=== PATIENT | male | born 1970 | race Caucasian/White ===

== ENCOUNTER 2025-01-01 10:28 | Outpatient (REF) | payer OTHER, SELFPAY ==
--- NOTE | 2025-01-01 10:31 | EMG_ITS ---
Chief complaint:? R20.0 paresthesia of skin - left upper extremity Reason for referral: Evaluate for Carpal Tunnel Syndrome Referred by:? TEJ Rodriguez Procedure done:? Left upper extremity NCS/EMG [place] [address] Left median and ulnar motor studies were performed. Left median and ulnar mixed sensory, median and lateral antecubital brachial sensory, and left radial sensory study was performed. Paraspinal muscles were tested with a needle. Findings: Left ulnar motor conduction velocity was moderately slow across elbow with slight reduction of amplitude. Otherwise no significant abnormality noted. Impression: Mild left ulnar neuropathy across cubital tunnel MTDD
--- OUTSIDE RECORDS SUMMARY | 2025-01-01 12:17 | XMS_ITS | Encounter Summary ---
Author Organization [facility] Address [address] [place] [address] Care Team Providers [employer] Name Role Phone Ruy Olsen MD Primary Care Provider Reason for Referral * Consultation (Routine) - Closed Specialty Diagnoses / Procedures Referred By Contact Referred To Contact Physical Medicine and Rehabilitation Diagnoses Chronic low back pain, unspecified back pain laterality, unspecified whether sciatica present Ruy Olsen MD [address] [place], [place] Phone: tel: fax: [facility] [place] [address] Phone: tel: fax: Referral ID Status Reason Start Date Expiration Date V isits Requested Visits Authorized [id number] Closed Specialty Services Required 12/25/2024 12/25/2025 10 10 Encounter Details Date Type Department Care Team (Late st Contact Info) Description 12/25/2024 Results Follow-Up Adult Medicine [id number] [place] [address] Ruy Olsen MD [address] [place], [place] Social History Tobacco Use Types Packs/Day Years Used Date Smoking Tobacco: Never Alcohol Use Standard Drinks/Week Comments Not Currently 0 (1 standard drink = 0.6 oz pur e alcohol) Housing Instability Answer Date Recorde d Are you worried that in the next 2 months you may not have stable housing? No 09/03/2024 Food Access & Nutrition Answer Date Rec orded Do you have access to a vari ety of food including fruits and vegetables? No 09/03/2024 Access to Healthcare Answer Date Record ed Within the last 3 months, ho w many times did you visit the emergency department for your medical care? 0 09/03/2024 Health Literacy Answer Date Recorded How often do you need to hav e someone help you when you read instructions, pamphlets, or other written material from your doctor or pharmacy? Never 09/03/2024 Caregiver: How often do you need to have someone help you when you read instructions, pamphlets, or other written material from your doctor or pharmacy? Not on file 09/03/2024 Financial Risk Answer Date Recorded How hard is it for you to pa y for the very basics like food, housing, medical care, and air conditioning / heating? Not very hard 09/03/2024 Transportation Answer Date Recorded Has the lack of transportati on kept you from meetings, work, or from getting things needed for daily living? No Has the lack of transportati on kept you from medical appointments or from getting medications? No 09/03/2024 Social Isolation Answer Date Recorded How often do you feel lonely or isolated from those around you? Sometimes 09/03/2024 Food Risk Answer Date Recorded Within the past 12 months we worried whether our food would run out before we got money to buy more. Never true 09/03/2024 Within the past 12 months th e food we bought just didn't last and we didn't have money to get more. Never true 09/03/2024 Dependent Care Answer Date Recorded Do you need help finding or paying for care for your loved ones. For example, child welfare consultant or elderly care for an older adult? No 09/03/2024 Education Answer Date Recorded Do you think completing more education or training, like finishing a GED, going to college, or learning a trade, would be helpful for you? No 09/03/2024 Employment and Income Answer Date Recor ded During the last four weeks, have you been actively looking for work? No 09/03/2024 Living Situation Answer Date Recorded What is your living situation? Unrecognized valu e 09/03/2024 Sex and Gender Information Value Date Recorded Sex Assigned at Male 09/03/2024 9:55 AM EDT Legal Sex Male 4:18 PM EDT Gender Identity Male 09/03/2024 9:55 AM EDT Sexual Orientation Straight 09/03/2024 9: 55 AM EDT documented as of this encounter Plan of Treatment Upcoming Encounters Date Type Department Care Team (Late st Contact Info) Description 01/17/2025 11:00 AM EST Ancillary Procedure [facility] [address] [place] [id number] 02/18/2025 3:00 PM EST Appointment [facility] [address] [place] [id number] Dustin Jones DO [address] [facility] [address] [place] [address] 06/19/2025 8:30 AM EDT Office Visit Adult Medicine [address] [phone] Ruy Olsen MD [address] [place] [address] 12/27/2025 3:00 PM EDT Office Visit [address] [phone] Ruy Olsen MD [address] [place], [place] Scheduled Referrals Name Type Priority Associated Diagnoses Order Schedule Ambulatory referral to Physical Medicine Rehab Outpatient Referral Routine Chronic low back pain, unspecified back pain laterality, unspecified whether sciatica present 1 Occurrences starting 12/25/2024 until 12/25/2025 documented as of this encounter Goals Goal Patient Goal Type Associated Problems Recent Progress Patient-Stated? Author <enter goal here> General Improving(09/2024 9:16 AM EDT) Yes Yanira Stanley, OT Note: OT PATIENT GOAL RESOLVE NUMBNESS AT [employer] LEFT HAND documented as of this encounter Visit Diagnoses Diagnosis Chronic low back pain, unspecified back pain laterality, unspecified whether sciatica present- Primary documented in this encounter Additional Health Concerns Assessment Noted Time PHQ-9 Depression Total Score: 5 09/04/19 25 10:01 AM EDT documented as of this encounter Care Teams [employer] Relationship Specialty Start Date End Date Ruy Olsen MD [address] [place] [address] PCP - General 08/12/23 documented as of this encounter
--- OUTSIDE RECORDS SUMMARY | 2025-01-01 12:17 | XMS_ITS | Clinical Summary ---
Author Organization [address] [place] [address] Address [address] [place] [address] Phone Care Team Providers Care Children'S Librarian Name Role Phone Ruy Olsen MD Primary Care Provider Allergies No known active allergies Medications sertraline (ZOLOFT) 100 mg tablet Take 1 tablet (100 mg total) by mouth 1 (one) time each day. Take 1 Tablet by mouth daily. - Oral Active busPIRone (BUSPAR) 7.5 mg tablet Take 1 tablet (7.5 mg total) by mouth 2 (two) times a day. Active cholecalcifero l (Vitamin D3) 50 mcg (2,000 unit) capsule Take 1 capsule (2,000 Units total) by mouth 1 (one) time each day. 30 each 11 5 026 Active losartan (COZAAR) 25 mg tablet TAKE 1 TABLET BY MOUTH EVERY DAY 90 tablet 1 5 Active atorvastatin (LIPITOR) 40 mg tablet TAKE 1 TABLET BY MOUTH EVERY DAY 90 tablet 1 5 Active diclofenac (VOLTAREN) 50 mg EC tablet Take 1 tablet (50 mg total) by mouth 2 (two) times a day if needed (pain). Do not crush, chew, or split. 28 tablet 1 5 Active tiZANidine (ZANAFLEX) 2 mg tablet Take 1 tablet (2 mg total) by mouth at bedtime as needed for muscle spasms. 30 tablet 5 025 Active atorvastatin (LIPITOR) 40 mg tablet TAKE 1 TABLET BY MOUTH EVERY DAY 90 tablet 5 025 Discontinued predniSONE (DELTASONE) 20 mg tablet Take 60 mg PO daily for 3 days, then take 40 mg PO daily for 3 days, then 20 mg PO daily for 3 days, then stop 18 tablet 5 025 Discontinued gabapentin (NEURONTIN) 100 mg capsule Take 1 capsule (100 mg total) by mouth at bedtime. 90 each 5 025 Discontinued methylPREDNISo lone (MEDROL DOSPAK) 4 mg tablet Take as directed on package. 21 tablet 5 025 tiZANidine (ZANAFLEX) 2 mg tablet Take 1 tablet (2 mg total) by mouth every 6 (six) hours if needed for muscle spasms for up to 10 days. 30 tablet 5 025 Discontinued Active Problems Problem Noted Date Diagnosed Date Pain of lower extremity 12/19/2024 Pain in both feet 12/19/2024 Osteoarthritis of cervical spine 12/19/2024 Osteoarthritis of left hand 12/19/2024 Snoring 12/19/2024 Enlarged tonsils 12/19/2024 Bilateral hearing loss 12/19/2024 Chronic low back pain with bilateral sciatica Acute neck pain 12/19/2024 Weakness of left hand 09/26/2024 Numbness of left hand 09/26/2024 Left hand paresthesia 09/26/2024 Abnormal EKG 09/13/2024 Chest pain 09/13/2024 Prediabetes 09/05/2024 Gastroesophageal reflux disease 09/05/2024 Other fatigue 09/05/2024 Class 3 severe obesity due t o excess calories with serious comorbidity and body mass index (BMI) of 40.0 to 44.9 in adult ([facility] V24, [facility] V28) 09/05/2024 Hyperlipidemia 12/07/2023 Anxiety and depression 12/07/2023 Mild intermittent asthma without complication Peyronie's disease 12/07/2023 Primary hypertension 12/07/2023 Sensorineural hearing loss (SNHL) of both ears 1 Thoracic aortic ectasia ([facility] V24) 12/07/2023 Upper back pain 12/07/2023 Encounters Date Type Department Care Team Description 12/28/2024 Results Follow-Up [address] [phone] Ruy Olsen MD 12/25/2024 Results Follow-Up [address] [phone] Ruy Olsen MD 12/21/2024 1:00 PM EDT - 12/21/2024 11:59 PM EDT Hospital Encounter [address] [phone] Pain in both feet; Pain of lower extremity, unspecified laterality; Chronic low back pain with bilateral sciatica, unspecified back pain laterality Discharge Disposition: Home or Self Care 12/20/2024 Telephone Gastroenterology - [address] [facility] [address] [facility] [address] [place] [address] Santosh Deutsch MD 12/19/2024 2:00 PM EDT Office Visit [address] [phone] Ruy Olsen MD Annual physical exam (Primary Dx); Routine general medical examination at a health care facility; Prediabetes; Anxiety and depression; Hyperlipidemia, unspecified hyperlipidemia type; Primary hypertension; Osteoarthritis of cervical spine, unspecified spinal osteoarthritis complication status; Pain in both feet; Pain of lower extremity, unspecified laterality; Acute neck pain; Paresthesia of left upper extremity; Left hand paresthesia; Osteoarthritis of left hand, unspecified osteoarthritis type; Chronic low back pain with bilateral sciatica, unspecified back pain laterality; Class 3 severe obesity due to excess calories with serious comorbidity and body mass index (BMI) of 40.0 to 44.9 in adult ([facility] V24, [facility] V28); Bilateral hearing loss, unspecified hearing loss type; Enlarged tonsils; Snoring 12/05/2024 8:30 AM EDT Treatment [facility] Occupational Therapy [address] [facility] [address] [place] [address] Yanira Stanley, OT Numbness of left hand (Primary Dx); Weakness of left hand 11/21/2024 8:30 AM EDT Treatment [facility] Occupational Therapy [address] [phone] Yanira Stanley OT Weakness of left hand (Primary Dx); Left hand paresthesia 11/12/2024 Telephone [facility] [address] [facility] [address] [place] [phone] Christelle Weber MD 11/07/2024 4:30 PM EDT Evaluation [facility] Occupational Therapy [address] [phone] Yanira Stanley OT Weakness of left hand; Left upper extremity numbness; Left hand paresthesia 11/07/2024 Plan of Care Documentation [facility] Occupational Therapy [address] [phone] 10/16/2024 Telephone Adult Medicine [address] [phone] [place] 10/09/2024 8:00 AM EDT Consult Orthopedic Surgery - [place] 175 [facility] [address] [place] [address] Rosita Weber PA Left hand paresthesia (Primary Dx) from Last 3 Months Immunizations Immunization Administration Dates Next Due Influenza Quadrivalent, 0.5m l, preservative free (Fluarix; FluLaval; Fluzone) ages 6mo and older (Afluria) 3yo and older 12/13/2018,01/31/2018,01/27/2015 Influenza trivalent, 0.5mL, preservative free (Fluarix; FluLaval; Fluzone) ages 6mo and older (Afluria) 3 years and older 12/26/2023 Influenza trivalent, recombi nant, 0.5mL, preservative free (Flublok) 9yo and older 11/22/2024 Pneumococcal conjugate 20 va lent (Prevnar 20, PCV 20) 2mo and older 12/26/2023 Tdap Tetanus diptheria acell ular pertussis (Boostrix; Adacel) 7yo and older 12/13/2018,11/19/2008 Zoster recombinant (Shingrix ) 19yo and older 05/11/2024 Surgical History Surgery Date Site/Laterality Comments LITHOTRIPSY PROCEDURE: HISTORICAL LITHOTRIPSY Medical History Medical History Date Comments History of kidney stones DX:Hist ory of kidney stones Social History Tobacco Use Types Packs/Day Years Used Date Smoking Tobacco: Never Tobacco Cessation:Counseling Given: Not Answered Alcohol Use Standard Drinks/Week Comments Not Currently [...] care for your loved ones. For example, children's choir director or elderly care for an older adult? [...] Orientation Straight 09/03/2024 9: 55 AM EDT Obstetrics History Last Filed Vital Signs Vital Sign Reading Time Taken Comments Blood Pressure 116/76 12/19/2024 1:41 PM EDT Pulse 93 12/19/2024 1:41 PM EDT Temperature 36.4 C (97.5 F) 12/19/2024 1:41 PM EDT Respiratory Rate 12 12/19/2024 1:41 PM EDT Oxygen Saturation 97% 09/17/2024 2:09 PM EDT Inhaled Oxygen Concentration - - Weight 134 kg (295 lb) 12/19/2024 1:41 PM EDT Height 177.8 cm (5' 10 ) 12/19/2024 1:41 PM EDT Body Mass Index 42.33 12/19/2024 1:41 PM EDT Plan of Treatment Upcoming Encounters Date Type Department Care Team (Late st Contact Info) Description 01/17/2025 11:00 AM EST Ancillary Procedure [facility] - [address] [place] [address] 02/18/2025 3:00 PM EST Appointment [facility] Endoscopy [address] [facility] [place] [address] Dustin Jones, [address] [facility] [address] [place] [address] 06/19/2025 8:30 AM EDT Office Visit [place] Medicine [address] [place] [phone] Ruy Olsen MD [address] [place] 12/27/2025 3:00 PM EDT [address] [place] [phone] Ruy Olsen MD [address] [facility] [place] Health Maintenance Due Date Last Done Comments Diabetes: Blood Sugar Control Test (HGBA1C) 06/20/2025 12/20/2024, 09/05/2024, 11/24/2023, Additional history exists Social Influencers of Health Screening 09/03/2025 09/03/2024 Diabetes: Annual GFR (Glomerular Filtration Rate) 09/05/2025 09/05/2024, 11/24/2023, 11/24/2023 Hypertension/CHF/CAD Annual BMP Blood Test 09/05/2025 09/05/2024, 11/24/2023, 11/24/2023 Colorectal Cancer Screening: Colonoscopy 11/28/2025 Postponed from 1969 (Patient Refused) HIV Screening 11/28/2025 Postponed from 12/06/2023 (Patient Refused) Hepatitis B Vaccines (1 of 3 - 19+ 3-dose series) 11/28/2025 Postponed from 1988 (Patient Refused) RSV Immunization Adult Patients (1 - Risk 50-74 years 1-dose series) 11/28/2025 Postponed from 11/07/2019 (Patient Refused) Zoster Vaccines (2 of 2) 11/28/2025 05/11/2024 Pos tponed from 07/06/2024 (Patient Refused) Cholesterol Screening (Lipid Panel) 09/05/2029 09/05/2024, 11/24/2023, 11/24/2023 DTaP,Tdap,and Td Vaccines (4 - Td or Tdap) 12/31/2029 01/01/2020, 12/13/2018, 11/19/2008 MMR Vaccines Aged Out 01/01/2020 No longer eligi ble based on patient's age to complete this topic Hepatitis C Screening Completed 09/21/2023 Pneumococcal Vaccine: 50+ Years Completed 12/26/2023, 01/01/2020 Depression Screening Completed 09/03/2024, 09/21/19 COVID-19 Vaccine Completed 11/22/2024, , 12/16/2022, Additional history exists Influenza Vaccine Completed 11/22/2024, , 12/16/2022, Additional history exists Diabetes: Annual Urine Albumin-Creatinine Ratio (uACR) Discontinued Diabetes: Annual Foot Exam Discontinued Diabetes: Annual Retina Eye Exam Discontinued HIB Vaccines Aged Out No longer eligi ble based on patient's age to complete this topic HPV Vaccines Aged Out No longer eligi ble based on patient's age to complete this topic Hepatitis A Vaccines Aged Out No long er eligible based on patient's age to complete this topic IPV Vaccines Aged Out No longer eligi ble based on patient's age to complete this topic Meningococcal ACWY Vaccine Aged Out N o longer eligible based on patient's age to complete this topic Meningococcal B Vaccine Aged Out No l onger eligible based on patient's age to complete this topic RSV Immunization Patients Under 20 months Aged Out No longer eligible based on patient's age to complete this topic Varicella Vaccines Aged Out No longer eligible based on patient's age to complete this topic Goals Goal Patient Goal Type Associated Problems Recent Progress Patient-Stated? Author <enter goal here> General Improving(09/2024 9:16 AM EDT) Yes Yanira Stanley, OT Note: OT PATIENT GOAL RESOLVE NUMBNESS AT DOMINANT LEFT HAND Autogenerated Goal Care Plan Autogenerated Problem No Yadira Jimenez Procedures Procedure Name Priority Date/Time Associated Diagnosis Comments XR LUMBAR SPINE 4+ VIEWS Routine 12/21/2024 1:09 PM EDT Pain in both feet Pain of lower extremity, unspecified laterality Chronic low back pain with bilateral sciatica, unspecified back pain laterality HEMOGLOBIN A1C Routine 12/20/2024 7:47 AM EDT Prediabetes PROSTATE SPECIFIC ANTIGEN SCREEN Routine 12/20/2024 7:47 AM EDT Annual physical exam COMPREHENSIVE METABOLIC PANEL Routine 09/05/2024 9:17 AM EDT Hyperlipidemia, unspecified hyperlipidemia type LIPID PANEL WITH REFLEX TO DIRECT LDL Routine 09/05/2024 9:17 AM EDT Hyperlipidemia, unspecified hyperlipidemia type HM DEPRESSION SCREENING Routine 09/21/2023 HEPATITIS C SCREENING Routine 09/21/2023 from Last 3 Months or Most Recently Relevant to Health Maintenance Results * XR Lumbar Spine 4+ Views (12/21/2024 1:09 PM EDT) Anatomical Region Laterality Modality Spine, L-spine Radiographic Christine ging 12/21/2024 7:27 PM EDT Impressions 12/21/2024 7:28 PM EDT Mild degenerative changes of the lower lumbar spine. -------- FINAL REPORT -------- Dictated By: Andrez Pittman Dictated Date: 12/21/2024 19:27 ET Assigned Physician: Andrez Pittman Reviewed and Electronically Signed By: Andrez Pittman Signed Date: 12/21/2024 19:28 ET Workstation ID: [id number] Transcribed By: Self Edit Transcribed Date: 12/21/2024 19:27 ET Narrative 12/21/2024 7:28 PM EDT HISTORY: chronic low back pain with sciatica TECHNIQUE: 4 views of the lumbar spine COMPARISON: None FINDINGS: Vertebral body height is preserved. Decreased disc height at L4-L5 and L5-S1 with endplate sclerosis. Small anterior osteophytes are present at the lower lumbar spine. No significant neuroforaminal stenosis. The sacroiliac joints are patent. Procedure Note Andrez Pittman MD - 12/21/2024 HISTORY: chronic low back pain with sciatica TECHNIQUE: 4 views of the lumbar spine COMPARISON: None FINDINGS: Vertebral body height is preserved. Decreased disc height at L4-L5 andL5-S1 with endplate sclerosis. Small anterior osteophytes are present atthe lower lumbar spine. No significant neuroforaminal stenosis. Thesacroiliac joints are patent. IMPRESSION: Mild degenerative changes of the lower lumbar spine. -------- FINAL REPORT -------- Dictated By: Andrez Pittman Dictated Date: 12/21/2024 19:27 ET Assigned Physician: Andrez Pittman Reviewed and Electronically Signed By: Andrez Pittman Signed Date: 12/21/2024 19:28 ET Workstation ID: [id number] Transcribed By: Self Edit Transcribed Date: 12/21/2024 19:27 ET Ruy Olsen MD IMG XR PROCEDURES Final Res ult * Prostate specific antigen screen (12/20/2024 7:47 AM EDT) Pathologist [facility] PSA 0.69 0.00 - 4.00 ng/mL LAB CHEMISTRY METHOD 12/20/2024 11:01 AM EDT [facility] Blood Venous blood specimen / Unknown Venipuncture / Unknown 12/20/2024 7:47 AM EDT 12/20/2024 7:47 AM EDT Narrative [facility] - 12/20/2024 11:01 AM EDT The Siemens Advia Centaur Chemiluminescent Immunoassay is used. Results obtained with different assay methods or kits cannot be used interchangeably. Results cannot be interpreted as absolute evidence of the presence or absence of malignant disease. Ruy Olsen MD LAB BLOOD ORDERABLES Final Result [facility] [address] [place] [address], [place] [phone] * Hemoglobin A1c (12/20/2024 7:47 AM EDT) Pathologist [facility] Hemoglobin A1C 6.3 <6.5 % LAB CHEMISTRY METHOD 12/20/2024 11:49 AM EDT [facility] Mean Bld Glu Estim. 134 mg/dL LAB CHEMISTRY METHOD 12/20/2024 11:49 AM [facility] Blood Venous blood specimen / Unknown Venipuncture / Unknown 12/20/2024 7:47 AM EDT 12/20/2024 7:47 AM EDT us Ruy Olsen MD LAB BLOOD ORDERABLES Final Result [facility] [address] [place] [address], [place] [phone] * Lipid panel with reflex to direct LDL (09/05/2024 9:17 AM EDT) [facility] Cholesterol 161 0 - 200 mg/dL LAB CHEMISTRY METHOD 09/05/2024 2:02 PM [facility] Triglycerides 100 0 - 150 mg/dL LAB CHEMISTRY METHOD 09/05/2024 2:02 PM [facility] HDL 51 >=40 mg/dL LAB CHEMISTRY METHOD 09/05/2024 2:02 PM [facility] LDL Calculated 90 0 - 100 mg/dL LAB CHEMISTRY METHOD 09/05/2024 2:02 PM [facility] VLDL Cholesterol Robert 20 mg/dL LAB CHEMISTRY METHOD 09/05/2024 2:02 PM [facility] Non HDL Chol. (LDL+VLDL) 110 <145 mg/dL LAB CHEMISTRY METHOD 09/05/2024 2:02 PM [facility] Chol/HDL Ratio 3.2 0.0 - 4.4 LAB CHEMISTRY METHOD 09/05/2024 2:02 PM [facility] Blood Venous blood specimen / Unknown Venipuncture / Unknown 09/05/2024 9:17 AM EDT 09/05/2024 9:17 AM EDT us Ruy Olsen MD LAB BLOOD ORDERABLES Final Result [facility] [address] [place] [address], [place] [phone] * (ABNORMAL) Comprehensive metabolic panel (09/05/2024 9:17 AM EDT) Pathologist [facility] Sodium 139 133 - 145 mmol/L LAB CHEMISTRY METHOD 09/05/2024 2:02 PM [facility] Potassium 4.5 3.5 - 5.5 mmol/L LAB CHEMISTRY METHOD 09/05/2024 2:02 PM [facility] Chloride 104 96 - 110 mmol/L LAB CHEMISTRY METHOD 09/05/2024 2:02 PM [facility] CO2 28 21 - 32 mmol/L LAB CHEMISTRY METHOD 09/05/2024 2:02 PM [facility] Anion Gap 7 3 - 11 LAB CHEMISTRY METHOD 09/05/2024 2:02 PM [facility] Glucose 111(H) 70 - 100 mg/dL LAB CHEMISTRY METHOD 09/05/2024 2:02 PM [facility] BUN 14 5 - 25 mg/dL LAB CHEMISTRY METHOD 09/05/2024 2:02 PM [facility] Creatinine 0.84 0.70 - 1.30 mg/dL LAB CHEMISTRY METHOD 09/05/2024 2:02 PM [facility] eGFR 104 >=60 mL/min/1. 73m2 LAB CHEMISTRY METHOD 09/05/2024 2:02 PM [facility] Comment:Calculation based on the Chronic Kidney Disease Epidemiology Collaboration (CKD-EPI) equation refit without adjustment for race. BUN/Creatinine Ratio 16.7 LAB CHEMISTRY METHOD 09/05/2024 2:02 PM [facility] Calcium 9.5 8.5 - 10.5 mg/dL LAB CHEMISTRY METHOD 09/05/2024 2:02 PM [facility] AST (SGOT) 8(L) 10 - 42 unit/L LAB CHEMISTRY METHOD 09/05/2024 2:02 PM [facility] ALT (SGPT) 29 10 - 60 unit/L LAB CHEMISTRY METHOD 09/05/2024 2:02 PM [facility] Alkaline Phosphatase 65 42 - 121 unit/L LAB CHEMISTRY METHOD 09/05/2024 2:02 PM [facility] Total Protein 7.6 6.0 - 8.0 g/dL LAB CHEMISTRY METHOD 09/05/2024 2:02 PM [facility] Albumin 3.9 3.2 - 5.0 g/dL LAB CHEMISTRY METHOD 09/05/2024 2:02 PM [facility] Total Bilirubin 0.6 0.0 - 1.4 mg/dL LAB CHEMISTRY METHOD 09/05/2024 2:02 PM [facility] Blood Venous blood specimen / Unknown Venipuncture / Unknown 09/05/2024 9:17 AM EDT 09/05/2024 9:17 AM EDT Ruy Olsen MD LAB BLOOD ORDERABLES Final Result [facility] [address] [place] [address], * Depression Screening (09/21/2023) Depression Screening abstracted Historical Provider HEALTH MAINTENANCE Final Result * Hepatitis C Screening (09/21/2023) Hepatitis C Screening abstracted Historical Provider HEALTH MAINTENANCE Final Result from Last 3 Months or Most Recently Relevant to Health Maintenance Additional Health Concerns Active Problems Noted Date Diagnosed Date Autogenerated Problem 01/01/2025 Insurance [facility] Advance Directives Documents on File Type Date Recorded Patient Iron Setter Expl anation Health Care Decision (hx) 06/30/2018 HE ALTH CARE PROXY Care Teams Children'S Librarian Relationship Specialty Start Date End Date Ruy Olsen MD [address] [place] [address] PCP - General 08/12/23
--- OUTSIDE RECORDS SUMMARY | 2025-01-01 12:17 | XMS_ITS | Encounter Summary ---
Author Organization [facility] Address [address] [place] [address] Care Team Providers Care Living Nurse Name Role Phone Ruy Olsen MD Primary Care Provider Encounter Details Date Type Department Care Team ([facility] st Contact Info) Description 12/28/2024 Results Follow-Up Adult Medicine [facility] [address] [place] [address] Ruy Olsen MD [address] [place] [address] Social History Tobacco Use Types Packs/Day Years [...] care for your loved ones. For example, rn child or elderly care for an older adult? [...] Description 01/17/2025 11:00 AM EST Ancillary Procedure [facility] - [address] [place] [phone] 02/18/2025 3:[address] [facility] [address] [place] [address] Dustin Jones DO [address] [place] [address] 06/19/2025 8:30 AM EDT Office Visit [address] [phone] Ruy Olsen MD [address] [place], [place] 12/27/2025 3:00 PM EDT Office Visit [address] [phone] Ruy Olsen MD [address] [place], [place] Scheduled Orders Name Type Priority Associated Diagnoses Orde r Schedule Hemoglobin A1c Lab Routine Prediabetes Every 12 weeks for 5 Occurrences starting 12/28/2024 until 12/28/2025 documented as of this encounter Goals Goal Patient Goal Type Associated Problems Recent Progress Patient-Stated? Author <enter goal here> General Improving(09/2024 9:16 AM EDT) Yes Yanira Stanley, OT Note: OT PATIENT GOAL RESOLVE NUMBNESS AT DOMINANT LEFT HAND documented as of this encounter Visit Diagnoses Diagnosis Prediabetes- Primary Other abnormal glucose documented in this encounter Additional Health Concerns Assessment Noted Time PHQ-9 Depression Total Score: 5 09/04/19 25 10:01 AM EDT documented as of this encounter Care Teams Living Nurse Relationship Specialty Start Date End Date [facility] [address] [facility] [place] [facility] - General 08/12/23 documented as of this encounter
== END 2025-01-01 10:29 | disposition home or self-care (01) ==
LOC: HO.NEURO 10:28
PROVIDERS: PCP Internal Medicine; Visit Provider Physician Assistant
DX: R20.2 Paresthesia of skin (principal)
CPT/HCPCS: 95886; 95910

== ENCOUNTER → 2025-01-01 10:31 | Outpatient (BNV) | payer OTHER, SELFPAY | PROVIDERS: PCP Internal Medicine; Visit Provider Psychiatry & Neurology Neurology | DX: G56.22 Lesion of ulnar nerve, left upper limb (principal) | CPT/HCPCS: 95886; 95910 ==